=== PATIENT | female | born 1990 | race African-American/Black ===

== ENCOUNTER 2017-08-10 10:02 | Emergency (ER) | payer SELFPAY ==
[~2017-08-10] VITALS: Ht 165.1 cm; Wt 115.0 kg
[~2017-08-10 10:02] MED LIST: MEDR4PAK3 PO; VENTAER INH; VIST50CA PO; ZITH250T PO
[2017-08-10 10:04] VITALS: BP 168/75; PULSE 78; RESP 14; TEMP 97.8; O2SAT 97
[2017-08-10] MEDS ORDERED: IBUPROFEN 200 MG TAB PO ONE (10:30)
--- NOTE | 2017-08-10 10:30 | PD ---
HPI Chief Complaint: Injury Time Seen by Provider: 10:15 Travel History International Travel<30 days: No Contact w/Intl Traveler<30days: No Traveled to known affect area: No History of Present Illness HPI The patient is a 27-year-old [place] female who presents to the emergency department for right wrist pain. The patient states she had a trip and fall last night, landed on an outstretched right wrist against the tub. The pain is located over the radial aspect of the wrist, worse with flexion, extension, and pronation. She also notes mild discomfort with palpation. She does note Limited range of motion secondary to the pain with minimal edema. She is right-hand dominant. She denies any numbness or tingling of the right upper extremity. She denies any difficulty moving the 5 digits of the right hand. She denies any difficulty with flexion extension of the right elbow and denies any difficulty with abduction or extension of the right shoulder. There is no LOC. She did take ibuprofen last night with mild relief of her symptoms. [facility] Past Medical History Medical History: Denies Significant Hx ?: Not LMP: 07/27/17 Past Surgical History Surgical History: No Previous Surgery Social History Alcohol Use: No Tobacco Use: No Substance Use: No Allergies-Medications (Allergen,Severity, Reaction): Coded Allergies: No Known Drug Allergies (Verified Allergy, Unknown, 08/10/17) Reported Meds & Prescriptions Reported Meds & Active Scripts Active Vistaril (Hydroxyzine Pamoate) 50 Mg Cap 50 Mg PO Q6 PRN Ventolin Hfa (Albuterol Sulfate) 18 Gm Aero 2 Puff INH Q4 PRN * SHAKE WELL BEFORE USE * Medrol Dosepak (Methylprednisolone) 4 Mg Abelardo 4 Mg PO DIRECTED TAKE DIRECTED Zithromax Z-Abelardo (Azithromycin) 250 Mg Tab 250 Mg PO DIRECTED 500 MG (2 TABLETS) PO ON DAY 1, THEN 250 MG (1 TABLET) PO ON DAYS 2 TO 5. Review of Systems Except as stated in HPI: all other systems reviewed are Neg Musculoskeletal: Positive: Edema, Pain Skin: No Other (denies any abrasions over the affected area) Neurologic: No: Paresthesia, Sensory Disturbance Physical Exam Narrative GENERAL: Awake, alert, pleasant 27-year-old female who appears her stated age and is in no acute respiratory distress. SKIN: Focused skin assessment warm/dry. HEAD: Atraumatic. Normocephalic. EYES: No injection or drainage. ENT: No nasal bleeding or discharge. Mucous membranes pink and moist. MUSCULOSKELETAL: Mild tenderness of the radial extensor surface of the right wrist. Limited ability to flex and extend secondary to pain. She is able to supinate and pronate with limited range of motion secondary to pain. Intrinsic hand muscles are intact. No tenderness of the anatomic snuffbox. No tenderness of the proximal right radius or ulna. She is able flex and extend the right elbow without difficulty and is able to abduct and extend the right shoulder without difficulty. Positive right radial pulse. NEUROLOGICAL: Awake and alert. No obvious cranial nerve deficits. Motor grossly within normal limits. Normal speech. Sensation is intact to the median , ulnar, and radial aspect of the right hand. PSYCHIATRIC: Appropriate mood and affect; insight and judgment normal. Data Data Last Documented VS Vital Signs Date Time Temp Pulse Resp B/P (MAP) Pulse Ox O2 Delivery O2 Flow Rate FiO2 08/10/17 10:04 97.8 78 14 168/75 (106) 97 Orders Orders Wrist, Complete (Dxt1ulk) (08/10/17 ) Ibuprofen (Advil) (08/10/17 10:30) Ibuprofen (Motrin) (08/10/17 10:45) Ed Discharge Order (08/10/17 11:04) Support Splint (08/10/17 11:05) MDM Medical Decision Making Medical Screen Exam Complete: Yes Emergency Medical Condition: Yes Medical Record Reviewed: Yes Interpretation(s) X-ray of the right wrist reveals no acute fracture or dislocation Differential Diagnosis Differential diagnosis includes fracture, contusion, hematoma, sprain, strain. Narrative Course X-ray of the right wrist was obtained and the patient was administered ibuprofen 600 mg orally for pain. X-rays negative for fracture or dislocation. The patient was placed in a Velcro wrist splint. She is advised to do most of the lifting with the left arm, elevate the right wrist, splint as needed, ice , and take ibuprofen as directed. She will be provided a copy of her x-ray results at discharge. She is advised to follow-up with her primary physician and if symptoms persist to follow-up with orthopedics. Diagnosis Primary Impression: Right wrist sprain Qualified Codes: S63.501A - Unspecified sprain of right wrist, initial encounter Patient Instructions: General Instructions Additional Instructions: Velcro wrist splint as needed. Elevate, ice, ibuprofen as directed. Please provide the patient a copy of her x-ray results at discharge. Follow-up with her primary physician and if symptoms persist follow-up with orthopedics. Med/Other Pt SpecificInfo: Prescription(s) given Scripts Ibuprofen (Ibuprofen) 600 Mg Tab 600 MG PO Q6H Y for Pain/Inflammation, #20 TAB 0 Refills Prov: Ángel Luciano MD 08/10/17 Disposition: 01 DISCHARGE HOME Condition: Stable Ángel Luciano MD Aug 10, 2017 10:30
--- NOTE | 2017-08-10 10:41 | RADRPT ---
EXAM DATE/TIME: 08/10/2017 10:31 [place] COMPARISON: No previous studies available for comparison. INDICATIONS : Right wrist pain after fall. MEDICAL HISTORY : None. SURGICAL HISTORY : None. ENCOUNTER: Initial ACUITY: 2 days PAIN SCORE: 7/10 LOCATION: Right posterior wrist FINDINGS: Three view examination of the right wrist demonstrates no soft tissue swelling, dislocation, or fract ure. The carpal bones are in normal alignment. The joint spaces are maintained. Bony mineralizatio n is normal. CONCLUSION: No acute fracture or joint dislocation. Kelton Goodwin MD on August 10, 2017 at 10:39 Board Certified Radiologist. This report was verified electronically.
[2017-08-10] MEDS ORDERED: IBUPROFEN 600 MG TAB PO ONE (10:45)
[2017-08-10] MEDS ORDERED: IBUP-232 PO (11:08)
[2017-08-10 11:30] VITALS: BP 134/78
== END 2017-08-10 11:30 | disposition home or self-care (01) ==
LOC: NEPD 10:02
DX: S63.501A Unspecified sprain of right wrist, initial encounter (principal); W01.0XXA Fall on same level from slipping, tripping and stumbling without subsequent striking against object, initial encounter
CPT/HCPCS: 29125; 73110; 99284; L3908